=== PATIENT | female | born 1950 | race Caucasian/White ===

== ENCOUNTER → 2021-09-25 11:16 | Outpatient (CLI) | payer MEDICARE, MEDICAID, SELFPAY ==
--- NOTE | 2021-09-25 | DI.RAD.S_ITS ---
PROCEDURE: XR KNEE LT 3V INDICATIONS: INSTABILITY OF LEFT KNEE TECHNIQUE: 3 views of the knee were acquired. COMPARISON: None. FINDINGS: Bones: No fractures or dislocations. Moderate to severe tricompartmental osteoarthritis more prominent in medial femoral tibial compartment is seen. No suspicious bony lesions. Soft tissues: Small to moderate joint effusion is seen. No suspicious soft tissue calcifications. IMPRESSION: Moderate to severe tricompartmental osteoarthritis and chondromalacia most prominent in medial femoral tibial compartment. Small to moderate joint effusion. No fracture or dislocation. Dictated by: Piyush Garcia M.D. on 09/25/2021 at 12:53 Approved by: Piyush Garcia M.D. on 09/25/2021 at 12:54
== END ==
PROVIDERS: PCP Student in an Organized Health Care Education/Training Program; Referring Provider Student in an Organized Health Care Education/Training Program; Visit Provider Student in an Organized Health Care Education/Training Program
DX: M23.52 Chronic instability of knee, left knee (principal); M17.12 Unilateral primary osteoarthritis, left knee; M94.262 Chondromalacia, left knee; M25.462 Effusion, left knee
CPT/HCPCS: 73562

== ENCOUNTER → 2023-03-04 11:49 | Outpatient (CLI) | payer MEDICARE, MEDICAID, OTHER, SELFPAY ==
--- NOTE | 2023-03-04 11:58 | DI.RAD.S_ITS ---
PROCEDURE: XR KNEE RT 3V INDICATIONS: acute right knee pain TECHNIQUE: 3 views of the knee were acquired. COMPARISON: None. FINDINGS: Bones: No fractures or dislocations. No suspicious bony lesions. Moderate tricompartmental osteoarthritis with osseous hypertrophy and mild joint space narrowing. Soft tissues: Moderate-sized joint effusion. No suspicious soft tissue calcifications. IMPRESSION: Moderate tricompartmental osteoarthritis. Nonspecific joint effusion. Dictated by: Ila Reyes MD, PhD on 03/04/2023 at 13:23 Approved by: Ila Reyes MD, PhD on 03/04/2023 at 13:23
== END ==
PROVIDERS: PCP Student in an Organized Health Care Education/Training Program; Referring Provider Student in an Organized Health Care Education/Training Program; Visit Provider Student in an Organized Health Care Education/Training Program
DX: M17.11 Unilateral primary osteoarthritis, right knee (principal); M25.461 Effusion, right knee; M25.561 Pain in right knee
CPT/HCPCS: 73562

== ENCOUNTER → 2024-09-14 13:17 | Outpatient (CLI) | payer OTHER, MEDICAID, SELFPAY ==
--- NOTE | 2024-09-14 13:20 | DI.US.S_ITS ---
PROCEDURE: US RENAL DOPPLER INDICATIONS: CKD WITH CONTROLLED HYPERTENSION AND CONTROLLED DIABETES TECHNIQUE: Real time scanning was performed of both kidneys, followed by Color and pulsed Doppler interrogation of the renal vessels. COMPARISON: None. FINDINGS: Aortic peak systolic velocity: 132 cm/s. Right side: Duong-scale imaging: Kidney is 10.3 cm long. No hydronephrosis. No nephrolithiasis. Renal cortex is normal in echogenicity. No suspicious solid renal masses. Proximal renal artery peak systolic velocity: 66 cm/s. Mid renal artery peak systolic velocity: 46 cm/s. Distal renal artery peak systolic velocity: 66 cm/s. Renal vein: Patent, without thrombus. Peak renal/aortic ratio (RAR): 0 point Left side: Duong-scale imaging: Kidney is 11.3 cm long. No hydronephrosis. No nephrolithiasis. Renal cortex is normal in echogenicity. No suspicious solid renal masses. Proximal renal artery peak systolic velocity: 45 cm/s. Mid-renal artery peak systolic velocity: 81 cm/s. Distal renal artery peak systolic velocity: 67 cm/s. Renal vein: Patent, without thrombus. Peak renal/aortic ratio (RAR): 0.6 Incidental note of multiple gallstones. Wall thickness measures 2.9 mm. Liver is enlarged measuring 23.9 cm with steatosis. IMPRESSION: No evidence renal artery hypertension. Cholelithiasis with borderline wall thickening. Recommend correlation patient's symptoms. Hepatomegaly with steatosis. Dictated by: Erin Marie M.D. on 09/14/2024 at 18:51 Approved by: Erin Marie M.D. on 09/14/2024 at 18:53
== END ==
PROVIDERS: PCP Nurse Practitioner Family; Referring Provider Family Medicine; Visit Provider Family Medicine
DX: N18.32 Chronic kidney disease, stage 3b (principal); K80.20 Calculus of gallbladder without cholecystitis without obstruction; R16.0 Hepatomegaly, not elsewhere classified; K76.0 Fatty (change of) liver, not elsewhere classified
CPT/HCPCS: 93975